=== PATIENT | female | born 2000 | race African-American/Black ===

== ENCOUNTER 2021-09-28 14:24 | Emergency (ER) | payer MEDICAID ==
[~2021-09-28] VITALS: Ht 175.3 cm; Wt 147.4 kg
[2021-09-28 15:51] LABS: BASOPHILS % 0.5 % (0.0-2.0); EOSINOPHILS % 1.9 % (0.0-5.0); HEMATOCRIT. 41.7 % (36.0-48.0); HEMOGLOBIN. 13.3 g/dL (12.0-16.0); LYMPHOCYTES % 27.1 % (20.0-50.0); MEAN CORPUSCULAR HEMOGLOBIN 27.4 pg (28.0-32.0); MEAN CORPUSCULAR VOLUME 85.6 fL (81.0-99.0); MEAN PLATELET VOLUME 7.9 fl (7.4-10.4); MONOCYTES % 8.6 % (2.0-8.0); NEUTROPHILS % 61.9 % (40.0-76.0); PLATELET 565 x1000/uL (130-400); RED BLOOD CELL COUNT 4.87 mill/uL (4.2-5.4); RED CELL DISTRIBUTION WIDTH 18.4 % (11.6-14.6)
[2021-09-28 15:56] LABS: CHLORIDE 105 mEq/L (98-107)
[2021-09-28 16:55] VITALS: BP 126/65
== END 2021-09-28 16:56 | disposition home or self-care (01) ==
LOC: ER 14:24
DX: R07.81 Pleurodynia (principal); R51.9 Headache, unspecified; R55 Syncope and collapse; Y04.2XXA Assault by strike against or bumped into by another person, initial encounter; Y93.89 Activity, other specified; Y92.89 Other specified places as the place of occurrence of the external cause
CPT/HCPCS: 36415; 71045; 80053; 81025; 85025; 99285

== ENCOUNTER 2023-05-16 21:21 | Emergency (ER) | payer MEDICAID ==
[~2023-05-16] VITALS: Ht 170.2 cm; Wt 149.9 kg
[2023-05-16 22:02] VITALS: BP 132/96; O2SAT 100
[2023-05-16 23:02] VITALS: PULSE 108; RESP 18; TEMP 98.3
== END 2023-05-16 23:03 | disposition home or self-care (01) ==
LOC: ER 21:21
DX: S50.851A Superficial foreign body of right forearm, initial encounter (principal); X58.XXXA Exposure to other specified factors, initial encounter; Y93.89 Activity, other specified; Y92.89 Other specified places as the place of occurrence of the external cause; Y99.8 Other external cause status
CPT/HCPCS: 73090; 81025; 99283

== ENCOUNTER 2023-09-12 15:16 | Emergency (ER) | payer MEDICAID ==
[~2023-09-12] VITALS: Ht 165.1 cm; Wt 112.0 kg
[2023-09-12 15:25] VITALS: BP 122/86; PULSE 98; RESP 16; TEMP 98.3; O2SAT 99
[2023-09-12] MEDS ORDERED: ACETAMINOPHEN 325MG TABLET PO ONE (15:45)
[2023-09-12] MEDS ORDERED: TOPUD MT (17:49)
[2023-09-12] MEDS ORDERED: BENZ100C86 MT (17:49)
== END 2023-09-12 18:41 | disposition home or self-care (01) ==
LOC: ER 15:16
DX: R05.9 Cough, unspecified (principal); R09.81 Nasal congestion; R06.02 Shortness of breath; Z20.822 Contact with and (suspected) exposure to COVID-19
CPT/HCPCS: 99284; 71045; 87426; 81025; C9803

== ENCOUNTER 2024-02-22 21:26 | Emergency (ER) | payer MEDICAID ==
[~2024-02-22] VITALS: Ht 165.1 cm; Wt 100.0 kg
[~2024-02-22 21:26] MED LIST: BENZ100C86 MT; HYDR-4001 MT; SULF1TAB48 MT; TOPUD MT
[2024-02-22 21:35] VITALS: BP 118/88; PULSE 97; RESP 20; O2SAT 98
[2024-02-22] MEDS: LIDOCAINE HCL/PF 1% 10 MG/ML 5ML VIAL INFIL ONE (22:15)
[2024-02-22] MEDS: BACITRACIN ZINC OINT UDPKT TOP ONE (22:15)
[2024-02-22] MEDS: TETANUS, DIPHTHERIA, PERTUSSIS VAC/PF 0.5ML (>10YR OLD) IM ONE (23:52)
== END 2024-02-23 02:12 | disposition home or self-care (01) ==
LOC: ER 21:26
DX: S51.812A Laceration without foreign body of left forearm, initial encounter (principal); X58.XXXA Exposure to other specified factors, initial encounter; Y93.89 Activity, other specified; Y92.89 Other specified places as the place of occurrence of the external cause; Y99.8 Other external cause status
CPT/HCPCS: 99283; 90715; 12004; 90471; J3490